=== PATIENT | male | born 1955 | race Caucasian/White ===

== ENCOUNTER 2019-04-09 09:05 | Emergency (ER) | payer OTHER, SELFPAY ==
--- NOTE | ~2019-04-09 | XR_ITS ---
EXAMINATION: XR chest 2V DATE: 04/09/2019 09:39 INDICATION: Cough and wheezing TECHNIQUE: AP and lateral views of the chest are obtained. COMPARISON: 05/06/2013 FINDINGS: The lungs are free of acute opacities. There is no pleural effusion or pneumothorax. The ca rdiomediastinal silhouette is normal. There is mild thoracic spondylosis. IMPRESSION: 1. No acute cardiopulmonary abnormality. Reviewed, dictated and finalized at location A. ET MOLDER
[2019-04-09 09:16] VITALS: BP 165/74; PULSE 95; RESP 20; TEMP 36.6; O2SAT 97
--- NOTE | 2019-04-09 09:33 | ED.URI ---
HPI - URI/Sore Throat General Chief Complaint: Upper Respiratory Infection Stated Complaint: CONGESTION Time Seen by Provider: 04/09/19 09:08 Source: patient Mode of arrival: ambulatory Limitations: no limitations History of Present Illness HPI Narrative: 63-year-old male presents to urgent care with complaints of shortness of breath, raw feeling to his upper chest and nonproductive cough for the past 5 weeks. Patient reports that he was evaluated here 5 weeks ago, diagnosed with sinusitis and was prescribed Augmentin and Robitussin. Patient is a smoker. Patient denies fever, bites, chills, nausea, vomiting or diarrhea. MD elicited complaint: cough Consistency: constant Severity: mild Able to tolerate fluids by mouth: Yes Exacerbating factors: nothing Relieving factors: nothing Related Data Home Medications Medication Instructions Recorded Confirmed dgdfgaedp-[id number]-ugkmryqnkjhcu ml PO 04/09/19 [Robitussin Cold-Flu Night (PE)] guaifenesin [Mucinex] 1,200 mg PO Q12H 04/09/19 04/09/19 Allergies Allergy/AdvReac Type Severity Reaction Status Date / Time No Known Allergies Allergy Verified 04/09/19 09:23 Review of Systems Constitutional: Constitutional: Reports as per HPI, Denies chills, Denies fever(s) and Denies weakness ENT: Reports as per HPI, Denies dysphagia, Denies dizziness, Denies epistaxis and Denies sore throat Respiratory: Respiratory: Reports as per HPI, Reports cough, Reports dyspnea and Denies wheezing Gastrointestinal: Gastrointestinal: Denies abdominal pain, Denies diarrhea, Denies nausea and Denies vomiting Neurologic: Denies dizziness, Denies syncope and Denies focal weakness [facility] Surgical History Surgical History History of arthroplasty of left shoulder S/P right rotator cuff repair Family History Family History Mother Family history of malignant neoplasm of brain Social History Social History Smoking status: Heavy tobacco smoker Alcohol intake: current Exam Const: General: healthy appearing, no acute distress and alert Orientation/consciousness: patient oriented x3 HENMT: Head: normal to inspection Ears: external ears normal and TM's normal bilaterally Face and sinus: sinuses nontender Neck: Neck: normal visual inspection Chest: Chest palpation & inspection: normal inspection of the chest Resp: Effort & Inspection: normal respiratory effort and not labored Auscultation: wheezes scattered wheezes and diminished lung sounds on the right throughout Cardio: Rate: regular rate Rhythm: regular rhythm Skin: General skin exam: normal color Rashes: no rashes Neuro: General: patient oriented x3, moves all extremities and no focal motor deficits Psych: Mental Status: mental status grossly normal Affect: normal affect Attitude: cooperative Course Vital Signs Vital signs: Vital Signs Temperature 36.6 C 04/09/19 09:16 Pulse Rate 95 04/09/19 09:16 Respiratory Rate 20 04/09/19 09:16 Blood Pressure 165/74 H 04/09/19 09:16 Pulse Oximetry 97 04/09/19 09:16 Temperature 36.6 C 04/09/19 09:16 Pulse Rate 95 04/09/19 09:16 Respiratory Rate 20 04/09/19 09:16 Blood Pressure 165/74 H 04/09/19 09:16 Pulse Oximetry 97 04/09/19 09:16 MDM - URI/Sore Throat MDM Narrative Medical decision making narrative: Decreased lung sounds much improved after albuterol nebulizer. Negative chest x-ray results discussed with patient. Smoking cessation discussed with patient. Patient agrees to follow-up with primary care provider if symptoms not improve and agrees to follow up on B/P. Patient agrees to proceed immediately to the emergency room if symptoms worsen. Differential Diagnosis Differential diagnosis: Likely upper respiratory infection, otitis media and sinusitis ABG Data Interpretation: Chest
[2019-04-09] MEDS: ALBUTEROL SULFATE NEB 2.5 MG/3 ML INH INHALATION (09:39)
[2019-04-09 10:00] VITALS: PULSE 84; RESP 18; O2SAT 98
== END 2019-04-09 09:54 | disposition home or self-care (01) ==
PROVIDERS: Emergency Provider Nurse Practitioner Family; PCP Family Medicine
DX: J40 Bronchitis, not specified as acute or chronic (principal)
CPT/HCPCS: 71046; 94640; 99213; G0463

== ENCOUNTER 2020-03-20 11:36 | Emergency (ER) | payer SELFPAY ==
--- NOTE | ~2020-03-20 | US_ITS ---
EXAMINATION: US venous doppler [facility] DATE: 03/20/2020 12:37 INDICATION: Left lower limb pain and swelling and erythema. TECHNIQUE: Grayscale ultrasound images without and with compression and Doppler ultrasound images of the left lower extremity veins were obtained. COMPARISON: None. FINDINGS: The visualized portions of left common femoral vein, profunda (deep) femoral vein, femoral vein, and greater saphenous vein outflow are patent. There is thrombus in the left popliteal, posterior tibial, peroneal, and gastrocnemius veins. IMPRESSION: 1. Acute deep vein thrombosis in the left popliteal, posterior tibial, peroneal, and gastrocnemius v eins. I called this result to Dr. Fitzgerald. Reviewed, dictated and finalized at location A. I[employer]IC[employer] IMPRESSION: 1. Acute deep vein thrombosis in the left popliteal, posterior tibial, peronea l, and gastrocnemius veins. I called this result to Dr. Fitzgerald.
[2020-03-20 11:43] VITALS: BP 151/75; PULSE 110; RESP 16; TEMP 36.1; O2SAT 97
[2020-03-20 14:06] VITALS: BP 129/88; PULSE 91; RESP 18; O2SAT 99
[2020-03-20] MEDS: APIXABAN 5 MG TABLET 10 MG PO (14:35)
[2020-03-20 15:11] VITALS: BP 151/71; PULSE 90; RESP 20; O2SAT 99
--- NOTE | 2020-03-20 18:09 | ED.GENADULT ---
HPI - General Adult General Chief complaint: Extremity Problem,Nontraumatic Stated complaint: L CALF PAIN Time Seen by Provider: 03/20/20 11:55 Source: patient Mode of arrival: ambulatory Limitations: no limitations History of Present Illness HPI narrative: Patient presents with chief complaint of pain to the posterior aspect of his leg which has been present for about 8 to 9 days. Patient states that it felt as if he had a cramp so he thought he pulled a muscle. He states he did notice that the knee became more swollen and tight so he came to the emergency department for evaluation. Patient states he has not had a history of DVTs or PEs in the past. Patient denies known trauma to the leg. Patient denies any chest pain, shortness of breath, fever, chills or any other symptoms besides the mild discomfort in his left leg. Related Data Home Medications Medication Instructions Recorded Confirmed ltmmfjlrd-MR-vjfizgqfixhlh ml PO 04/09/19 [Robitussin Cold-Flu Night (PE)] guaifenesin [Mucinex] 1,200 mg PO Q12H 04/09/19 04/09/19 Allergies Allergy/AdvReac Type Severity Reaction Status Date / Time No Known Allergies Allergy Verified 03/20/20 11:47 Review of Systems Review of Systems: Narrative: CONSTITUTIONAL: Denies fever, chills, or sweats. EYES: Denies visual changes, redness, or discharge. ENT: Denies rhinorrhea, congestion, sore throat, or otalgia. CARDIOVASCULAR: Denies chest pain, palpitations, or edema. RESPIRATORY: Denies cough or dyspnea. GASTROINTESTINAL: Denies abdominal pain, nausea, vomiting, or diarrhea. GENITOURINARY: Denies dysuria or hematuria. SKIN: Denies rash or itching. MUSCULOSKELETAL: Reports left calf pain denies back pain, joint pain, or myalgia. NEUROLOGIC: Denies headache, numbness, dizziness, or weakness. PSYCHIATRIC: Denies anxiety or depression. [facility] Surgical History Surgical History History of arthroplasty of left shoulder S/P right rotator cuff repair Family History Family History Mother Family history of malignant neoplasm of brain Social History Social History (Reviewed 02/25/20 @ 09:36 by CALE Lim Smoking status: Heavy tobacco smoker Alcohol intake: current Gender identity (if verbalized by the patient): Male Exam Narrative: Exam Narrative: GENERAL: Well-appearing, well-nourished, and in no acute distress. Patient smiling and talking normally without signs of distress. HEAD: Normocephalic, atraumatic. EYES: PERRLA and EOMI. NECK: Supple. No adenopathy or masses. No carotid bruits or JVD CHEST: Clear to auscultation. No respiratory distress. No wheezes rales or rhonchi. No tachypnea HEART: Regular rate and rhythm. EXTREMITIES: Normal range of motion. There is tightness, swelling and mild erythema noted to the left calf. No tenderness or swelling extending up into the thigh. No outward signs of trauma. SKIN: Warm, dry, no rash. NEURO: No focal deficits. Alert and oriented x3. PSYCH: Normal mood and affect. Course Vital Signs Vital signs: Vital Signs Temperature 96.9 F L 03/20/20 11:43 Pulse Rate 110 H 03/20/20 11:43 Respiratory Rate 16 03/20/20 11:43 Blood Pressure 151/75 H 03/20/20 11:43 Pulse Oximetry 97 03/20/20 11:43 Temperature 96.9 F L 03/20/20 11:43 Pulse Rate 90 03/20/20 15:11 Respiratory Rate 20 03/20/20 15:11 Blood Pressure 151/71 H 03/20/20 15:11 Pulse Oximetry 99 03/20/20 15:11 Medical Decision Making MDM Narrative Medical decision making narrative: Patient has a DVT. Patient does not have any chest pain, shortness of breath, fever, chills. His vitals are stable. Consult Dr. Shaver patient's PCP to inform them of patient's DVT finding. He is in agreement with patient being started on Eliquis and states that he will follow-up with the patient in his office and continue management. Lenora
== END 2020-03-20 15:13 | disposition home or self-care (01) ==
PROVIDERS: Emergency Provider Emergency Medicine; PCP Family Medicine
DX: I82.432 Acute embolism and thrombosis of left popliteal vein (principal); I82.442 Acute embolism and thrombosis of left tibial vein; I82.452 Acute embolism and thrombosis of left peroneal vein; I82.462 Acute embolism and thrombosis of left calf muscular vein; F17.200 Nicotine dependence, unspecified, uncomplicated; Z96.612 Presence of left artificial shoulder joint
CPT/HCPCS: 93971; 99284; A9270

== ENCOUNTER 2020-07-10 10:47 | Outpatient (CLI) | payer OTHER, SELFPAY ==
--- NOTE | ~2020-07-10 | US_ITS ---
EXAMINATION: US venous doppler [facility] DATE: 07/10/2020 11:43 INDICATION: Acute embolism and thrombosis of left popliteal vein. TECHNIQUE: Grayscale ultrasound images without and with compression and Doppler ultrasound images of the bilateral lower extremity veins were obtained. COMPARISON: Ultrasound 03/20/2020 FINDINGS: The visualized portions of right common femoral vein, profunda (deep) femoral vein, femoral vein, pop liteal vein, peroneal veins, posterior tibial veins, and greater saphenous vein outflow are patent. The visualized portions of left common femoral vein, profunda femoral vein, femoral vein, peroneal ve ins, posterior tibial veins, and greater saphenous vein outflow are patent. There is thrombus in left popliteal and gastrocnemius veins. IMPRESSION: 1. Deep vein thrombosis involving left popliteal and gastrocnemius veins with interval improvement i n distribution. Reviewed, dictated and finalized at location A. IMPRESSION: 1. Deep vein thrombosis involving left popliteal and gastrocnemius veins with interval improvement in distribution.
== END 2020-07-10 10:48 | disposition home or self-care (01) ==
PROVIDERS: PCP Family Medicine; Visit Provider Nurse Practitioner Family
DX: I82.432 Acute embolism and thrombosis of left popliteal vein (principal); I82.462 Acute embolism and thrombosis of left calf muscular vein
CPT/HCPCS: 93970

== ENCOUNTER → 2021-02-15 01:10 | Outpatient (CLI) | payer SELFPAY ==
[2021-02-16 13:55] LABS: SARS-CoV-2 RNA PCR Negative
== END ==
PROVIDERS: PCP Family Medicine; Visit Provider Nurse Practitioner Family
DX: R68.89 Other general symptoms and signs (principal); Z20.822 Contact with and (suspected) exposure to COVID-19
CPT/HCPCS: C9803; U0003; U0005

== ENCOUNTER 2022-09-12 13:48 | Emergency (ER) | payer OTHER, SELFPAY ==
--- NOTE | ~2022-09-12 | US_ITS ---
EXAMINATION: US venous doppler [facility] DATE: 09/12/2022 16:41 INDICATION: Right upper limb pain and swelling. TECHNIQUE: Grayscale ultrasound images without and with compression and Doppler ultrasound images of the right upper extremity veins were obtained. COMPARISON: None. FINDINGS: The visualized portions of the right internal jugular vein, subclavian vein, axillary vein, brachial veins, basilic vein, radial vein, and ulnar vein are patent. There is thrombus in right cephalic vein . IMPRESSION: 1. No deep venous thrombosis. 2. Superficial vein thrombosis involving right cephalic vein. Reviewed, dictated and finalized at location A.
[2022-09-12 14:31] VITALS: BP 145/70; PULSE 86; RESP 16; TEMP 36.6; O2SAT 98
--- NOTE | 2022-09-12 16:55 | ED.SKABFB ---
HPI - Skin/Abscess/Foreign Bdy General Chief complaint: Skin/Abscess/Foreign Body Stated complaint: SKIN IRRITATION, ARM PAIN Time Seen by Provider: 09/12/22 15:57 History of Present Illness HPI narrative: Patient is a 67-year-old male who presents ER with concerns for infection or blood clot to the right upper extremity. He had blood draw 5 days ago and then developed redness and a nodule to his bicep 3 days ago. It is progressively worsened. Tender to touch and warm to touch. No fevers chills or sweats. No shortness of breath. No history of DVT or PE in the past. Reports the area of concern is where his tourniquet was placed. No edema down the arm. Related Data Allergies Allergy/AdvReac Type Severity Reaction Status Date / Time No Known Allergies Allergy Verified 09/12/22 17:03 Review of Systems Review of Systems: All systems reviewed & are unremarkable except as noted in HPI and below Constitutional: Constitutional: Denies chills, Denies fatigue and Denies fever(s) Cardiovascular: Cardiovascular: Denies chest pain Respiratory: Respiratory: Denies dyspnea Integumentary/Breasts: Skin/Breast: Denies pruritus, Reports erythema and Reports rash PMFSH Past Medical History Medical History (Updated 09/12/22 @ 16:57 by Carlos Eduardo Choe MD) BMI 29.0-29.9,adult BMI 31.0-31.9,adult Breast mass, right Dietary counseling and surveillance (03/17/15) Disorder of puberty, unspecified Elevated PSA Encounter for screening for malignant neoplasm of colon Encounter for screening for malignant neoplasm of prostate High triglycerides Low testosterone Testicular hypofunction Tobacco abuse counseling Surgical History Surgical History History of arthroplasty of left shoulder S/P right rotator cuff repair Family History Family History Mother Family history of malignant neoplasm of brain Father Anxiety Sibling No problems noted. Social History Social History Smoking packs per day: 1 Smoking cigarettes per day: 20.0 Years smoked: 40 Smoking pack-years: 40.00 Smoking status: Current every day smoker Tobacco type: cigarettes Second hand tobacco smoke exposure: No Alcohol intake: current Drinks per week: 7 Alcohol use details: beer Substance use: never Substance use type: does not use Lack of Transportation: No Lack of Food: Never True Current Housing: I Have Housing Concerned About Future Housing: No Difficulty Paying Gas/Electric Bills: No Difficulty Paying for Meds: No Currently Unemployed: No Education: High School Diploma/GED Difficulty w/ Childcare or Family Care: No Living arrangements: with family Occupation/Education: retired 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 Gender identity (if verbalized by the patient): Male Spiritual care concerns: No Exam Narrative: GENERAL: Well-appearing, well-nourished, and in no acute distress. HEAD: Normocephalic, atraumatic. ENT: Mucous membranes moist. CHEST: Clear to auscultation. No respiratory distress. HEART: Regular rate and rhythm. Normal peripheral pulses. EXTREMITIES: Normal range of motion. No edema. SKIN: Warm, dry. Erythema right anterior arm over the mid biceps. Firm nodule in the middle with no vesicles/pustules/fluctuance. Warm to touch. NEURO: Alert and oriented x3. PSYCH: Normal mood and affect. Course Course Emergency Course: Patient educated on imaging results as well as diagnosis and treatment plan. He is verbalized understanding. Discharge home. Vital Signs Vital signs: Vital Signs Temperature 97.8 F 09/12/22 14:31 Pulse Rate 86 09/12/22 14:31 Respiratory Rate 16 09/12/22 14:31 Blood Pressure 145/70 H 09/12/22 14:31 Pulse Oximetry 98 09/12/22 1
[2022-09-12 17:28] VITALS: BP 145/85; PULSE 88; RESP 18; O2SAT 98
== END 2022-09-12 17:29 | disposition home or self-care (01) ==
PROVIDERS: Emergency Provider Emergency Medicine; PCP Family Medicine
DX: T80.1XXA Vascular complications following infusion, transfusion and therapeutic injection, initial encounter (principal); I80.8 Phlebitis and thrombophlebitis of other sites; L03.113 Cellulitis of right upper limb; F17.210 Nicotine dependence, cigarettes, uncomplicated; Z96.612 Presence of left artificial shoulder joint
CPT/HCPCS: 93971; 99284

== ENCOUNTER 2022-11-17 20:44 | Emergency (ER) | payer OTHER, SELFPAY ==
--- NOTE | ~2022-11-17 | CT_ITS ---
EXAMINATION: CTA brain carotid DATE: 11/17/2022 21:07 INDICATION: Acute stroke. TECHNIQUE: Computed tomographic angiography (CTA) of the head was performed with 100 mL Omnipaque-350 intravenous contrast. CTA of the neck was performed with intravenous contrast. Automated exposure co ntrol and iterative reconstruction technique were employed. The dose-length product was 1236.96 mGy-c m. Maximum intensity projection and volume rendered 3D-reconstructions were created by the technologi st on a separate workstation. COMPARISON: Head CT 01/17/2023 FINDINGS: HEAD CTA: There are scattered areas of low attenuation in the cerebral white matter, which is within normal limits for the patient's age. There is cortical hypodensity involving the right insula, consis tent with acute infarct. There is no intracranial hemorrhage or abnormal intracranial mass lesion. Th e ventricles are normal in size. The mastoid air cells are normal. There is mild mucosal thickening i n the paranasal sinuses. There is an old blowout fracture of medial wall of the right orbit. The vert ebral arteries are codominant. There is no significant stenosis of basilar artery or the renal arteri es. There is no significant stenosis of the intracranial internal carotid arteries or anterior cerebr al arteries. There is total occlusion of proximal right middle cerebral artery. There is no significa nt stenosis of left middle cerebral artery. Anterior communicating artery is normal. NECK CTA: There are no pathologically enlarged lymph nodes. There is no significant stenosis of the vertebral arteries. There is mild plaque in the proximal internal carotid arteries. There is 0% steno sis of the proximal right internal carotid artery relative to normal distal artery lumen diameter (NA SCET criteria). There is 0% stenosis of the proximal left internal carotid artery relative to normal distal artery lumen diameter. There is severe cervical spondylosis. IMPRESSION: 1. Acute infarct involving the right insula. 2. 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 3. 0% stenosis of the proximal internal carotid arteries relative to normal distal artery lumen diame ters (NASCET criteria). Reviewed, dictated and finalized at location E. IMPRESSION: 1. Acute infarct involving the right insula. 2. 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 3. 0% stenosis of the proximal internal carotid arteries relative to normal dis rayray artery lumen diameters (NASCET criteria).
--- NOTE | ~2022-11-17 | CT_ITS ---
EXAMINATION: CT brain wo con DATE: 11/17/2022 20:52 INDICATION: Facial weakness. Slurred speech. TECHNIQUE: Computed tomography (CT) of the head was performed without intravenous contrast. The mA wa s adjusted according to patient size. Iterative reconstruction technique was employed. The dose-lengt h product was 681.00 mGy-cm. COMPARISON: None FINDINGS: There is no intracranial hemorrhage, acute infarction, or abnormal intracranial mass lesion . There are scattered areas of low attenuation in the cerebral white matter, which is within normal l imits for the patient's age. The ventricles are normal in size. There is an old blowout fracture of m edial wall of right orbit. There is mild mucosal thickening in the paranasal sinuses. The mastoid air cells are normal. IMPRESSION: 1. Normal aging brain. Reviewed, dictated and finalized at location E. IMPRESSION: 1. Normal aging brain.
--- NOTE | 2022-11-17 20:47 | ECG_ITS ---
Measurements Intervals [place] Rate: 75 P: 47 CA: 179 QRS: -42 QRSD: 84 T: 41 QT: 409 QTc: 459 Interpretive Statements SINUS RHYTHM WITH SINUS ARRHYTHMIA MARKED LEFT AXIS DEVIATION [QRS AXIS < -30] NO PREVIOUS ECG AVAILABLE FOR COMPARISON Electronically Signed On 11-18-2022 14:19:04 CDT by Aniket Mason M.D.
--- NOTE | 2022-11-17 20:53 | ED.NEUROSD ---
HPI - Neuro Symptoms/Deficit General Chief Complaint: Suspected CVA Stated Complaint: stroke symptoms Time Seen by Provider: 11/17/22 20:47 History of Present Illness HPI Narrative: Patient is a 67 year old male with history of PE, not on anticoaculation, here with acute stroke symptoms. Patient states he was washing dishes around 7 PM when he became suddenly weak. notes she found him on the floor, unable to get him off of the ground. EMS was called, they had initially noted his LKN was 7:45 PM. Normal blood glucose and blood pressure for EMS. Full left sided weakness and facial droop per EMS. Patient denies history of prior stroke. No recent surgeries. No blood thinner use. Currently does not take medications. Follows at the [place], recent outpatient CT for pulmonary nodule. Related Data Allergies Allergy/AdvReac Type Severity Reaction Status Date / Time No Known Allergies Allergy Verified 09/12/22 17:03 Review of Systems Review of Systems: ROS unobtainable: Yes unobtainable due to medical condition PMFSH Past Medical History Medical History (Updated 11/17/22 @ 21:32 by Tracy Suero MD) BMI 29.0-29.9,adult BMI 31.0-31.9,adult Breast mass, right Dietary counseling and surveillance (03/17/15) Disorder of puberty, unspecified Elevated PSA Encounter for screening for malignant neoplasm of colon Encounter for screening for malignant neoplasm of prostate High triglycerides Low testosterone Testicular hypofunction Tobacco abuse counseling Surgical History Surgical History History of arthroplasty of left shoulder S/P right rotator cuff repair Family History Family History Mother Family history of malignant neoplasm of brain Father Anxiety Sibling No problems noted. Social History Social History Smoking packs per day: 1 Smoking cigarettes per day: 20.0 Years smoked: 40 Smoking pack-years: 40.00 Smoking status: Current every day smoker Tobacco type: cigarettes Second hand tobacco smoke exposure: No Alcohol intake: current Drinks per week: 7 Alcohol use details: beer Substance use: never Substance use type: does not use Lack of Transportation: No Lack of Food: Never True Current Housing: I Have Housing Concerned About Future Housing: No Difficulty Paying Gas/Electric Bills: No Difficulty Paying for Meds: No Currently Unemployed: No Education: High School Diploma/GED Difficulty w/ Childcare or Family Care: No Living arrangements: with family Occupation/Education: retired 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 Gender identity (if verbalized by the patient): Male Spiritual care concerns: No Exam Narrative: GENERAL: Well-appearing, well-nourished, and in no acute distress. HEAD: Normocephalic, atraumatic. EYES: PERRLA and gaze does not cross midline to the left. ENT: Nares clear. Mucous membranes moist. NECK: Supple. CHEST: Clear to auscultation. No respiratory distress. HEART: Regular rate and rhythm. Normal peripheral pulses. ABDOMEN: Soft, nontender, nondistended. EXTREMITIES: Flaccid left upper and lower extremity SKIN: Warm, dry, no rash. NEURO: No movement of left upper or lower extremity. Left-sided facial droop, gaze deviation to the right. Sensory deficit over left face upper and lower extremity. Slurred speech. Oriented, alert. PSYCH: Normal mood and affect. Course Course Emergency Course: Patient seen evaluated on arrival, [place] around 20 on quick exam. Normal blood pressure and blood glucose. Last known normal within thrombolytic window. Patient is not on blood thinners. Patient taken to CT, CTA. Once CT is performed will touch base with stroke service at [facility] as I believe he is a thrombolytics candidate.
[2022-11-17 21:04] VITALS: BP 151/84; PULSE 79; RESP 19; O2SAT 98
[2022-11-17 21:09] LABS: Basophils Percent Auto 0.3 % (0.2-1.2); Eosinophils Absolute Auto 0.3 K/mm3 (0-0.3); Eosinophils Percent Auto 2.3 % (0-4.4); Hematocrit 45.4 % (42.0-52.0); Hemoglobin 14.9 g/dL (14.0-18.0); Immature Granulocyte Absolute 0.09 K/mm3 (0.00-0.031); Immature Granulocyte Percent A 0.7 % (0-0.5); Lymphocytes Absolute Auto 2.37 K/mm3 (0.9-3.2); Lymphocytes Percent Auto 18.3 % (18.3-44.2); Mean Corpuscular HGB Conc 32.8 g/dl (32-36); Mean Corpuscular Hemoglobin 32.5 pg (26-34); Mean Corpuscular Volume 99.1 fl (80-100); Mean Platelet Volume 10.3 fl (7.4-10.4); Monocytes Absolute Auto 0.9 K/mm3 (0.1-0.6); Monocytes Percent Auto 6.8 % (2.6-8.5); Neutrophils Absolute Auto 9.3 K/mm3 (1.3-6.7); Neutrophils Percent Auto 71.6 % (45.5-73.1); Platelet Count Result 242 k/mm3 (150-375); Red Blood Count 4.58 M/mm3 (4.6-6.20); Red Cell Distribution Width 12.8 % (11.5-14.5)
[2022-11-17 21:13] LABS: Estimated CRCL calculation 63 ml/min; Estimated Glomerular Filt Rate > 60
[2022-11-17 21:17] VITALS: BP 157/94; PULSE 79; RESP 18; TEMP 36.7; O2SAT 99
[2022-11-17 21:18] VITALS: PULSE 82
[2022-11-17 21:24] LABS: INR 0.9
[2022-11-17 21:25] LABS: Alanine Aminotransferase 26 U/L (6-50); Albumin Level 4.2 g/dL (3.5-5.1); Alkaline Phosphatase 80 U/L (38-126); Anion Gap 7 mmol/L (8-16); Aspartate Amino Transferase 33 U/L (17-59); Bilirubin,Total 0.6 mg/dL (0.2-1.3); Blood Urea Nitrogen 14 mg/dL (9-20); Calcium 9.2 mg/dL (8.4-10.2); Carbon Dioxide 26 mmol/L (22-30); Chloride 103 mmol/L (98-107); Estimated CRCL calculation 75 ml/min; Estimated Glomerular Filt Rate > 60; Glucose 131 mg/dL (65-110); Partial Thromboplastin Time 24.4 SECONDS (22.3-36.8); Potassium 4.2 mmol/L (3.4-5.0); Sodium 136 mmol/L (137-145)
[2022-11-17 21:33] LABS: Troponin I 0.013 ng/mL (0.000-0.034)
== END 2022-11-17 21:35 | disposition short-term general hospital (02) ==
PROVIDERS: Emergency Provider Student in an Organized Health Care Education/Training Program; PCP Family Medicine
DX: I63.511 Cerebral infarction due to unspecified occlusion or stenosis of right middle cerebral artery (principal); R29.721 NIHSS score 21; Z86.711 Personal history of pulmonary embolism; Z96.612 Presence of left artificial shoulder joint; F17.210 Nicotine dependence, cigarettes, uncomplicated
CPT/HCPCS: 36415; 37195; 70450; 70496; 70498; 80053; 84484; 85025; 85610; 85730; 93005; 99285; J2997; Q9967